=== PATIENT | female | born 1960 | race Caucasian/White ===

== ENCOUNTER → 2020-01-19 11:11 | Outpatient (CLI) | payer OTHER, SELFPAY ==
--- NOTE | ~2020-01-19 | XR_ITS ---
XR knee LT min 4V DATE: 01/19/2020 11:33 INDICATION: Pain and swelling of left knee after injuries 2 months ago TECHNIQUE: Cross table, AP and bilateral oblique views COMPARISON: None FINDINGS: No fracture, dislocation, joint effusion or periosteal reaction or bone destruction. Joint spaces are well preserved. No radiopaque intra-articular loose body or chondrocalcinosis. IMPRESSION: No significant abnormality Reviewed, dictated and finalized at location B. ELAIN ENAMEL INSTALLER IMPRESSION: No significant abnormality
== END ==
PROVIDERS: PCP Family Medicine; Visit Provider Family Medicine
DX: M25.562 Pain in left knee (principal)
CPT/HCPCS: 73564

== ENCOUNTER 2020-11-01 07:53 | Outpatient (CLI) | payer OTHER, SELFPAY ==
--- NOTE | ~2020-11-01 | US_ITS ---
EXAMINATION: US carotid duplex BI DATE: 11/01/2020 08:57 INDICATION: Vertigo. Right carotid bruit. TECHNIQUE: Grayscale, color Doppler, and pulsed Doppler images of the cervical carotid arteries were obtained. The degree of vessel stenosis is placed in one of the following categories: normal, <50%, 5 0-69%, >=70% but less than near-occlusion, near-occlusion, or total occlusion. Note that percent sten osis relative to normal distal artery lumen diameter is indirectly measured from velocity measurement s as described by Greg, et al. Radiology 2003; [id number]. Notes: Normal: Peak systolic velocity <125 centimeters/sec and no plaque <50%. Peak systolic velocity <125 ( EDV <40; ICA/CCA PSV ratio <2.0; used these factors only a tandem lesions or low cardiac output or co ntralateral disease) 50-69 %: PSV 125-230 (EDV 40-100; ratio 2-4) >= 70% but less than near occlusion: PSV greater than 230 (EDV > 100; ratio> 4.0) Near Occlusion: PSV that is variable; markedly narrowed lumen Occlusion: Absent flow on color/spectral Doppler and no lumen on armstrong scale. COMPARISON: None. FINDINGS: RIGHT: The right common carotid artery (CCA) peak systolic velocity (PSV) is 108 cm/s. The right internal ca rotid artery (ICA) PSV is 91 cm/s. The right ICA end-diastolic velocity (EDV) is 19 cm/s. The right I CA/CCA PSV ratio is .9. The external carotid artery (ECA) PSV is 136 cm/s. There is antegrade flow in the right vertebral artery. LEFT: The left CCA PSV is 110 cm/s. The left ICA PSV is 110 cm/s. The left ICA EDV is 20 cm/s. The left ICA /CCA PSV ratio is 1.0. The ECA PSV is 102 cm/s. There is antegrade flow in the left vertebral artery . IMPRESSION: 1. Less than 50% stenosis in the right internal carotid artery by sonographic criteria. 2. Less than 50% stenosis in the left internal carotid artery by sonographic criteria. Reviewed, dictated and finalized at location B. ATTENDANT IMPRESSION: 1. Less than 50% stenosis in the right internal carotid artery by sonographic radha morales. 2. Less than 50% stenosis in the left internal carotid artery by sonographic loco marquez.
== END 2020-11-01 07:54 | disposition home or self-care (01) ==
PROVIDERS: PCP Family Medicine; Visit Provider Family Medicine
DX: R09.89 Other specified symptoms and signs involving the circulatory and respiratory systems (principal); I65.23 Occlusion and stenosis of bilateral carotid arteries
CPT/HCPCS: 93880

== ENCOUNTER 2020-11-20 08:03 | Outpatient (CLI) | payer OTHER, SELFPAY ==
--- NOTE | ~2020-11-20 | MM_ITS ---
EXAMINATION: MM screening ceasar BI w sean HISTORY: Screening mammogram TECHNIQUE: Craniocaudal and mediolateral oblique 3-D tomosynthesis images were obtained and synthetic 2-D images were generated. CAD analysis was submitted and interpreted. COMPARISON: 11/09/2018, 10/19/2017, 12/08/2016 bilateral digital screening mammogram examinations BREAST PARENCHYMAL COMPOSITION: There are scattered areas of fibroglandular density. FINDINGS: Status post partial mastectomy on the left, with multiple surgical clips in the inner aspec t of the mid medial left breast. There is no evidence of suspicious mass, calcification, or interval architectural distortion to suggest malignancy in either breast. There has been no suspicious interva l change. IMPRESSION: 1. No mammographic evidence of malignancy. 2. Recommend routine screening mammography in one year. BI-RADS Category 2: Benign finding(s). Reviewed, dictated and finalized at location A. ATION SPECIALIST
== END 2020-11-20 08:04 | disposition home or self-care (01) ==
PROVIDERS: PCP Family Medicine; Visit Provider Family Medicine
DX: Z12.31 Encounter for screening mammogram for malignant neoplasm of breast (principal)
CPT/HCPCS: 77063; 77067

== ENCOUNTER 2021-02-15 14:20 | Outpatient (CLI) | payer OTHER, SELFPAY | END 2021-02-15 14:21 | disposition home or self-care (01) | PROVIDERS: PCP Family Medicine | DX: Z23 Encounter for immunization (principal) | CPT/HCPCS: 0001A; 91300 ==

== ENCOUNTER 2021-03-08 14:01 | Outpatient (CLI) | payer OTHER, SELFPAY | END 2021-03-08 14:02 | disposition home or self-care (01) | LOC: ANHCOVIDVC 14:01 | PROVIDERS: PCP Family Medicine | DX: Z23 Encounter for immunization (principal) | CPT/HCPCS: 0002A; 91300 ==

== ENCOUNTER 2021-06-12 15:12 | Emergency (ER) | payer OTHER, SELFPAY ==
--- NOTE | ~2021-06-12 | XR_ITS ---
EXAMINATION: XR chest 2V EXAM DATE: 06/12/2021 15:58 INDICATION: S.O.B. and wheezing for 4 days, smoker for 40 year. TECHNIQUE: Frontal and lateral projections of the chest obtained and reviewed. Comparison is made to prior examination from 12/31/2017. FINDINGS: Right apical granuloma unchanged. The lungs are otherwise clear. There are no pleural eff usions. The cardiomediastinal silhouette is within normal limits. There is no pneumothorax suspecte d. The bones and soft tissues are unremarkable. IMPRESSION: No acute cardiopulmonary findings. Reviewed, dictated and finalized at location A.
[2021-06-12 15:24] VITALS: BP 123/66; PULSE 76; RESP 20; TEMP 36.8; O2SAT 98
--- NOTE | 2021-06-12 15:50 | ED.GENADULT ---
HPI - General Adult General Chief complaint: Upper Respiratory Infection Stated complaint: Cough, Sinus, difficulty breathing Source: patient Mode of arrival: ambulatory Limitations: no limitations History of Present Illness HPI narrative: Patient is a 60-year-old female presents the [facility] via POV for evaluation of upper respiratory symptoms that have been present for approximately 4 days. Additionally, she reports bilateral ear pain, productive cough, chest congestion, and shortness of breath. She reports her sputum production to be thick and mostly clear but sometimes white and sometimes shades of green . Guaifenesin and antihistamines provide mild temporary relief. Deep inspiration worsens cough. Patient recently traveled to [place]. She admits that she is a tobacco smoker and smokes 1 PPD x40 years. Related Data Home Medications Medication Instructions Recorded Confirmed alprazolam 0.25 mg tablet 0.25 mg PO TID 08/21/20 06/12/21 apixaban 5 mg tablet 5 mg PO BID 08/21/20 06/12/21 fluoxetine 10 mg capsule 10 mg PO DAILY 08/21/20 06/12/21 lisinopril 10 mg tablet 10 mg PO DAILY 08/21/20 06/12/21 metoprolol tartrate 25 mg tablet 25 mg PO BID tablet 08/21/20 06/12/21 omeprazole 20 mg capsule,delayed 20 mg PO DAILY 08/21/20 06/12/21 release Allergies Allergy/AdvReac Type Severity Reaction Status Date / Time simvastatin Allergy Intermediate Dizziness Verified 06/12/21 15:23 Review of Systems Review of Systems: Narrative: History of bronchitis. Denies history of COPD, asthma, and pneumonia. Denies fever, sweats, chills, change in appetite, fatigue, skin color changes, headache, nasal congestion/discharge, dizziness, lymphadenopathy, sinus problems, ear drainage, chest pain, heart murmurs, heart palpitations, shortness of breath, wheezing, cyanosis, hemoptysis, hoarseness, orthopnea, pleuritic pain, nausea, vomiting, diarrhea, and myalgias. [facility] Past Medical History Medical History Breast cancer Bronchitis Depression Family planning (~02/1998) GERD (gastroesophageal reflux disease) (~12/2009) Hypertension Paroxysmal atrial fibrillation Social History Social History Gender identity (if verbalized by the patient): Female Comments I have reviewed and agree with the patient's past medical, surgical, social, and family hx as documented by the RN. There is no relevant family history pertinent to the presenting complaint. Exam Narrative: Exam Narrative: GENERAL: Well-appearing, well-nourished, and in no acute distress. HEAD: Normocephalic, atraumatic. No sinus tenderness or facial swelling appreciated. EYES: PERRLA and EOMI. No evidence of erythema, swelling, or drainage. ENT: Bilateral external ears and ear canals normal. Bilateral TMs are normal.No TM perforation. Nares clear, no rhinorrhea or epistaxis. Bilateral turbinates without erythema/ swelling. Mucous membranes moist and pink. Uvula is midline without erythema and swelling. No evidence of petechial rash, cobblestoning, lesions, ulcers, erythema, swelling, exudates, peritonsillar abscess, tenting, or drooling. Breath odor and voice normal. NECK: Supple. No Lymphadenopathy or nuchal rigidity appreciated. CHEST: Mild inspiratory wheezes noted throughout posterior bilateral lung quispe. Moderate wet cough appreciated on examination. No respiratory distress. No evidence of rales, rhonchi, rub, or pleuritic cp upon examination. HEART: Regular rate and rhythm. No murmur, gallop, or rub heard. EXTREMITIES: Normal range of motion. No edema. SKIN: Warm, dry, no rash. NEURO: No focal deficits. Alert and oriented x3. Course Vital Signs Vital signs: Vital Signs Temperature 98.2 F 06/12/21 15:24 Pulse Rate 76 06/12/21 15:24 Respiratory Rate 20 06/12/21 15:24 Blood Pressure 123/66 06/12/21 15:24 Pulse Oximetry 9
== END 2021-06-12 16:26 | disposition home or self-care (01) ==
PROVIDERS: Emergency Provider Nurse Practitioner Family; PCP Family Medicine
DX: J40 Bronchitis, not specified as acute or chronic (principal); Z20.822 Contact with and (suspected) exposure to COVID-19; Z85.3 Personal history of malignant neoplasm of breast; F32.9 Major depressive disorder, single episode, unspecified; K21.9 Gastro-esophageal reflux disease without esophagitis; I48.0 Paroxysmal atrial fibrillation
CPT/HCPCS: 71046; 87426; 99213; C9803; G0463

== ENCOUNTER → 2021-07-19 03:57 | Outpatient (CLI) | payer OTHER, SELFPAY ==
[2021-07-19 20:12] LABS: SARS-CoV-2 RNA PCR Negative
== END ==
PROVIDERS: PCP Family Medicine; Visit Provider Family Medicine
DX: J06.9 Acute upper respiratory infection, unspecified (principal); Z20.822 Contact with and (suspected) exposure to COVID-19
CPT/HCPCS: C9803; U0003; U0005

== ENCOUNTER 2021-11-04 01:24 | Day surgery (SDC) | payer OTHER, SELFPAY ==
[2021-10-16 14:29] VITALS: BMI 27.2
[2021-11-04 11:00] VITALS: BP 132/72; PULSE 63; RESP 16; TEMP 36.3; O2SAT 99
--- NOTE | 2021-11-04 11:03 | PM.HPGS ---
History of Present Illness History of Present Illness Consent: Risks, benefits, and alternatives have been discussed and questions answered. Patient agrees to proceed with procedure. Chief complaint: family hx of colon ca Narrative: Becky Fischer is a 61 year old female who is here for colon cancer screening. She has a family history of colon cancer, her mother and maternal uncle Review of Systems Review of Systems: All systems reviewed & are unremarkable except as noted in HPI and below PMFSH Past Medical History Medical History Breast cancer Bronchitis Depression Family planning (~02/1998) GERD (gastroesophageal reflux disease) (~12/2009) Hypertension Paroxysmal atrial fibrillation Social History Social History Smoking packs per day: 1 Smoking cigarettes per day: 20.0 Years smoked: 40 Smoking pack-years: 40.00 Smoking status: Current every day smoker Tobacco type: cigarettes Alcohol intake: current Drinks per week: 50 Alcohol use details: beer 7/day Substance use: never Substance use type: does not use Living arrangements: alone Gender identity (if verbalized by the patient): Female Spiritual care concerns: No Meds Home Medications and Allergies Home Medications Medication Instructions Recorded Confirmed Type alprazolam 0.25 mg tablet 0.25 mg PO TID 08/21/20 11/04/21 History apixaban 5 mg tablet 5 mg PO BID 08/21/20 11/04/21 History fluoxetine 10 mg capsule 20 mg PO DAILY 08/21/20 11/04/21 History lisinopril 10 mg tablet 10 mg PO DAILY 08/21/20 11/04/21 History metoprolol tartrate 25 mg tablet 25 mg PO BID tablet 08/21/20 11/04/21 History omeprazole 20 mg capsule,delayed 20 mg PO DAILY 08/21/20 11/04/21 History release levalbuterol tartrate 2 inh INHALATION Q4-6H PRN #15 g 06/12/21 11/04/21 Rx Allergies Allergy/AdvReac Type Severity Reaction Status Date / Time simvastatin Allergy Intermediate Dizziness Verified 11/04/21 10:59 Vital Signs Vital Signs - 24 hr 11/04/21 11:00 Temperature 36.3 C L Pulse Rate 63 Respiratory Rate 16 Blood Pressure 132/72 Pulse Oximetry 99 Assessment and Plan Assessment and plan (1) Colon cancer screening: Code(s): Z12.11 - Encounter for screening for malignant neoplasm of colon Status: Acute Assessment and Plan: Colonoscopy with possible biopsy or polypectomy or cautery or injection of substances.
[2021-11-04] MEDS: LACTATED RINGERS 1,000 ML 150 ML IV CONT (11:04)
--- NOTE | 2021-11-04 11:43 | P.PNAN_ITS ---
Anes - Initial Pre Proc Eval Procedure: Operation Date: 11/04/21 12:30 Proposed Procedures p Screening Colonoscopy - Shun Crowley MD Date/Time: 11/04/21 11:43 Surgeon: Shun Crowley MD Pre Op Diagnosis: family hx of colon ca Patient Data Age: 61 Gender: F Height: 1.63 m Weight: 71.9 kg Last Vital Signs Temp 97.3 F L 11/04/21 11:00 Pulse 63 11/04/21 11:00 Resp 16 11/04/21 11:00 BP 132/72 11/04/21 11:00 Pulse Ox 99 11/04/21 11:00 Allergies Allergy/AdvReac Type Severity Reaction Status Date / Time simvastatin Allergy Intermediate Dizziness Verified 11/04/21 10:59 Home Medications Medication Instructions Recorded Confirmed Type alprazolam 0.25 mg tablet 0.25 mg PO TID 08/21/20 11/04/21 History apixaban 5 mg tablet 5 mg PO BID 08/21/20 11/04/21 History fluoxetine 10 mg capsule 20 mg PO DAILY 08/21/20 11/04/21 History lisinopril 10 mg tablet 10 mg PO DAILY 08/21/20 11/04/21 History metoprolol tartrate 25 mg tablet 25 mg PO BID tablet 08/21/20 11/04/21 History omeprazole 20 mg capsule,delayed 20 mg PO DAILY 08/21/20 11/04/21 History release levalbuterol tartrate 2 inh INHALATION Q4-6H PRN #15 g 06/12/21 11/04/21 Rx Patient hx anesthesia problems: none Family hx anesthesia problems: none Results Review: All pre-operative results and documents have been reviewed as part of the pre-operative evaluation. [facility] Past Medical History Medical History Breast cancer Bronchitis Depression Family planning (~02/1998) GERD (gastroesophageal reflux disease) (~12/2009) Hypertension Paroxysmal atrial fibrillation Social History Social History Smoking packs per day: 1 Smoking cigarettes per day: 20.0 Years smoked: 40 Smoking pack-years: 40.00 Smoking status: Current every day smoker Tobacco type: cigarettes Alcohol intake: current Drinks per week: 50 Alcohol use details: beer 7/day Substance use: never Substance use type: does not use Living arrangements: alone Gender identity (if verbalized by the patient): Female Spiritual care concerns: No Anes - Eval Final PreProcedure Day of Procedure 11/04/21 11:43 Patient weight: normal Heart: regular rate and rhythm Lungs: clear to auscultation Airway: Mallampati scale class II Neurological: alert and oriented Last oral intake: >/= 8 hours ASA classification: III Emergent: no Anesthetic plan: proceed Anesthesia type and monitoring: general GIVS and standard monitoring Results Review: All pre-operative results and documents have been reviewed as part of the pre-operative evaluation. Informed Consent: The patient's anesthetic plan and its attendant risks and benefits were discussed with the patient/family/POA. Questions were solicited and answers provided to the satisfaction of the patient/family/POA.
[2021-11-04 12:07] VITALS: BP 121/91; PULSE 58; RESP 21; O2SAT 98
[2021-11-04 12:17] VITALS: BP 94/49; PULSE 59; RESP 18; O2SAT 100
[2021-11-04 12:27] VITALS: BP 107/57; PULSE 49; RESP 19; O2SAT 100
[2021-11-04 12:37] VITALS: BP 108/62; PULSE 51; RESP 19; O2SAT 100
== END 2021-11-04 12:36 | disposition home or self-care (01) ==
PROVIDERS: PCP Family Medicine; Visit Provider Internal Medicine Gastroenterology
PROC: 0DJD8ZZ Inspection of Lower Intestinal Tract, Via Natural or Artificial Opening Endoscopic (ICD-10-PCS; CPT 45378; principal; 2021-11-04 12:30)
DX: Z12.11 Encounter for screening for malignant neoplasm of colon (principal); K57.30 Diverticulosis of large intestine without perforation or abscess without bleeding; K64.8 Other hemorrhoids; Z80.0 Family history of malignant neoplasm of digestive organs; I10 Essential (primary) hypertension; I48.0 Paroxysmal atrial fibrillation; K21.9 Gastro-esophageal reflux disease without esophagitis; F32.9 Major depressive disorder, single episode, unspecified; Z85.3 Personal history of malignant neoplasm of breast; Z79.51 Long term (current) use of inhaled steroids; Z79.01 Long term (current) use of anticoagulants; F17.210 Nicotine dependence, cigarettes, uncomplicated
CPT/HCPCS: 45378; J2704; J7120

== ENCOUNTER 2023-12-06 22:48 | Emergency (ER) | payer OTHER, SELFPAY ==
--- NOTE | ~2023-12-06 | CT_ITS ---
Clinical Indication: Chest pain CT Scan of the Chest with Contrast: Technique: Contiguous sections were acquired throughout the chest after intravenous administration of 100 cc of Omnipaque 350. Dose reduction technique was used on this scan by utilizing automated expos ure control and iterative reconstruction technique. The dose-length product (DLP) was 414.78 mGy-cm. Findings: There is no evidence of any significant mediastinal, hilar or axillary lymphadenopathy. Small calcifi ed mediastinal and right hilar lymph nodes are present. There is no filling defect in the pulmonary a rterial tree to suggest pulmonary embolus. There is no evidence of aortic dissection or aneurysm. There is no evidence of pleural or pericardial effusion. Probable minimal scarring in the right upper lobe. Images through the upper abdomen reveal calcified splenic granulomas. Impression: No evidence of pulmonary embolus, aortic dissection, or aortic aneurysm. No definite acute pulmonary abnormality. Evidence of prior granulomatous disease. Reviewed, dictated and finalized at [facility]. BILITY BENEFITS SPECIALIST Impression: No evidence of pulmonary embolus, aortic dissection, or aortic aneurysm. No definite acute pulmonary abnormality. Evidence of prior granulomatous disease.
--- NOTE | ~2023-12-06 | XR_ITS ---
Clinical Indication: Chest pain PA and lateral views of the chest: Comparison: 06/12/2021 Findings: The lungs are clear, without evidence of focal consolidation or pleural effusion. Cardiome diastinal silhouette is within normal limits. Stable calcified right paratracheal lymph node. Bones a nd soft tissues are unremarkable. Impression: Clear lungs. Reviewed, dictated and finalized at location . EFIED PETROLEUM GASFITTER Impression: Clear lungs.
--- NOTE | 2023-12-06 22:49 | ECG_ITS ---
Measurements Intervals [place] Rate: 65 P: 48 MS: 156 QRS: 51 QRSD: 90 T: 61 QT: 406 QTc: 423 Interpretive Statements SINUS RHYTHM T WAVE ABNORMALITY IN ANTERIOR LEADS- CONSIDER ISCHEMIA BASELINE WANDER- II, III ABNORMAL ECG NO PREVIOUS ECG AVAILABLE FOR COMPARISON Electronically Signed On 12-07-2023 13:13:31 PLC TECHNICIAN by Miguel A Mcconnell D.O.
[2023-12-06 22:55] VITALS: BP 107/71; PULSE 66; RESP 18; TEMP 36.5; O2SAT 96
[2023-12-06 23:12] LABS: Basophils Percent Auto 0.3 % (0.2-1.2); Eosinophils Absolute Auto 0.3 K/mm3 (0-0.3); Eosinophils Percent Auto 4.9 % (0-4.4); Hematocrit 37.5 % (37.0-47.0); Hemoglobin 12.2 g/dL (12.0-15.0); Immature Granulocyte Absolute 0.01 K/mm3 (0.00-0.031); Immature Granulocyte Percent A 0.2 % (0-0.5); Lymphocytes Absolute Auto 2.09 K/mm3 (0.9-3.2); Lymphocytes Percent Auto 34.1 % (18.3-44.2); Mean Corpuscular HGB Conc 32.5 g/dl (32-36); Mean Corpuscular Hemoglobin 31.8 pg (26-34); Mean Corpuscular Volume 97.7 fl (80-100); Mean Platelet Volume 9.8 fl (7.4-10.4); Monocytes Absolute Auto 0.4 K/mm3 (0.1-0.6); Monocytes Percent Auto 7.2 % (2.6-8.5); Neutrophils Absolute Auto 3.3 K/mm3 (1.3-6.7); Neutrophils Percent Auto 53.3 % (45.5-73.1); Platelet Count Result 223 k/mm3 (150-375); Red Blood Count 3.84 M/mm3 (4.2-5.4); Red Cell Distribution Width 12.1 % (11.5-14.5); White Blood Count 6.1 K/mm3 (4.5-10.0)
[2023-12-06 23:26] LABS: Alanine Aminotransferase 24 U/L (6-35); Albumin Level 4.3 g/dL (3.5-5.1); Alkaline Phosphatase 94 U/L (38-126); Anion Gap 12 mmol/L (8-16); Aspartate Amino Transferase 34 U/L (14-36); Bilirubin,Total 0.3 mg/dL (0.2-1.3); Blood Urea Nitrogen 11 mg/dL (7-17); Calcium 9.4 mg/dL (8.4-10.2); Carbon Dioxide 24 mmol/L (22-30); Chloride 99 mmol/L (98-107); Estimated CRCL calculation 75 ml/min; Estimated Glomerular Filt Rate > 60; Glucose 102 mg/dL (65-110); Lipase 77 U/L (23-300); Potassium 3.9 mmol/L (3.4-5.0); Sodium 135 mmol/L (137-145)
[2023-12-06 23:38] LABS: Troponin I < 0.012 ng/mL (0.000-0.034)
[2023-12-06 23:56] LABS: Prothrombin Time 13.2 Seconds (11.1-14.7)
[2023-12-07 01:54] VITALS: BP 103/61; PULSE 58; RESP 24; O2SAT 97
--- NOTE | 2023-12-07 02:58 | ECG_ITS ---
Measurements Intervals [place] Rate: 51 P: 12 UT: 165 QRS: 46 QRSD: 87 T: 51 QT: 466 QTc: 433 Interpretive Statements SINUS BRADYCARDIA BORDERLINE T WAVE ABNORMALITY- ANTERIOR LEADS BORDERLINE ECG NO PREVIOUS ECG AVAILABLE FOR COMPARISON Electronically Signed On 12-07-2023 7:03:17 BACK TENDER INSULATION BOARD by Miguel A Mcconnell D.O.
[2023-12-07 03:08] VITALS: BP 106/62; PULSE 55; RESP 21; O2SAT 99
[2023-12-07 04:01] LABS: Troponin I < 0.012 ng/mL (0.000-0.034)
[2023-12-07 05:04] VITALS: BP 114/81; PULSE 52; RESP 20; O2SAT 96
[2023-12-07 05:53] VITALS: BP 114/72; PULSE 56; RESP 18; O2SAT 95
--- NOTE | 2023-12-07 06:36 | ED.GENADULT ---
HPI - General Adult General Chief complaint: Chest Pain Stated complaint: chest pain Time Seen by Provider: 12/07/23 04:49 History of Present Illness HPI narrative: Patient is 63-year-old female who presents emergency department with chief complaint of chest pain since Thursday. Patient reports she has a sharp type pain on the left side of her chest reports worse with inspiration worse with movement. Patient reports he attempted to drink some alcohol in place a heating pad on it that did not relieve her pain. Related Data Home Medications Medication Instructions Recorded Confirmed alprazolam 0.25 mg tablet 0.25 mg PO DAILY PRN anxiety 06/22/23 08/27/23 Allergies Allergy/AdvReac Type Severity Reaction Status Date / Time simvastatin Allergy Intermediate Dizziness Verified 12/07/23 01:54 Review of Systems Review of Systems: A 10 system review of systems was completed on the patient and is negative except for what is stated in the HPI. Nursing and ancillary documentation was reviewed. PMFSH Past Medical History Medical History Blood in stool Breast cancer Bronchitis Depression Diverticulitis Family history of colon cancer Family planning (~02/1998) Functional dyspepsia Generalized anxiety disorder GERD (gastroesophageal reflux disease) (~12/2009) Hyperlipidemia, unspecified Hypertension Nicotine dependence, cigarettes, uncomplicated Paroxysmal atrial fibrillation Pure hypercholesterolemia, unspecified Right carotid bruit Social History Social History Smoking packs per day: 1 Smoking cigarettes per day: 20.0 Years smoked: 40 Smoking pack-years: 40.00 Smoking status: Current every day smoker Tobacco type: cigarettes Alcohol intake: current Drinks per week: 50 Alcohol use details: beer 7/day Substance use: never Substance use type: does not use Lack of Transportation: No Lack of Food: Never True Current Housing: I Have Housing Concerned About Future Housing: Decline to Answer Difficulty Paying Gas/Electric Bills: YES Difficulty Paying for Meds: Decline to Answer Currently Unemployed: No Education: High School Diploma/GED Difficulty w/ Childcare or Family Care: No Living arrangements: alone Occupation/Education: occupation Gender identity (if verbalized by the patient): Female Sexual Orientation (if Verbalized by the Patient): Straight or Heterosexual Spiritual care concerns: No Exam Narrative: GENERAL: Well-appearing, well-nourished, and in no acute distress. HEAD: Normocephalic, atraumatic. EYES: PERRLA and EOMI. ENT: Nares clear, no rhinorrhea or epistaxis. Mucous membranes moist. NECK: Supple. CHEST: Clear to auscultation. No respiratory distress. Chest wall is tender to palpation reproducible pain HEART: Regular rate and rhythm. No murmur heard. Normal peripheral pulses. ABDOMEN: Soft, nontender, nondistended, normal active bowel sounds. EXTREMITIES: Normal range of motion. No edema. SKIN: Warm, dry, no rash. NEURO: No focal deficits. Alert and oriented x3. PSYCH: Normal mood and affect. Course Vital Signs Vital signs: Vital Signs Temperature 36.5 C 12/06/23 22:55 Pulse Rate 66 12/06/23 22:55 Respiratory Rate 18 12/06/23 22:55 Blood Pressure 107/71 12/06/23 22:55 Pulse Oximetry 96 12/06/23 22:55 Oxygen Delivery Room Air 12/06/23 22:55 Temperature 36.5 C 12/06/23 22:55 Pulse Rate 56 L 12/07/23 05:53 Respiratory Rate 18 12/07/23 05:53 Blood Pressure 114/72 12/07/23 05:53 Pulse Oximetry 95 12/07/23 05:53 Oxygen Delivery Room Air 12/06/23 22:55 Medical Decision Making [facility] Narrative Medical decision making narrative: Differential diagnosis includes chest wall pain, ACS, pulmonary embolism, pneumothorax, EKG showed no acute ischemic changes electrolyt
[2023-12-07 06:39] VITALS: BP 113/71; PULSE 60; RESP 21; O2SAT 98
[2023-12-07 06:48] VITALS: BP 113/69; PULSE 69; RESP 14; O2SAT 96
== END 2023-12-07 06:51 | disposition home or self-care (01) ==
PROVIDERS: Emergency Provider Emergency Medicine; PCP Family Medicine
DX: R07.89 Other chest pain (principal); I10 Essential (primary) hypertension; I48.0 Paroxysmal atrial fibrillation; E78.00 Pure hypercholesterolemia, unspecified; F32.A Depression, unspecified; F41.1 Generalized anxiety disorder; Z85.3 Personal history of malignant neoplasm of breast; K21.9 Gastro-esophageal reflux disease without esophagitis; F17.210 Nicotine dependence, cigarettes, uncomplicated; Z79.01 Long term (current) use of anticoagulants
CPT/HCPCS: 36415; 71046; 71275; 80053; 83690; 84484; 85025; 85610; 85730; 93005; 99284; Q9967

== ENCOUNTER 2024-02-09 14:46 | Outpatient (CLI) | payer OTHER, SELFPAY ==
--- NOTE | ~2024-02-09 | MM_ITS ---
EXAMINATION: MM screening ceasar BI w sean HISTORY: Screening mammogram TECHNIQUE: Craniocaudal and mediolateral oblique 3-D tomosynthesis images were obtained and synthetic 2-D images were generated. CAD analysis was submitted and interpreted. COMPARISON: 11/20/2020, 11/09/2018 bilateral screening mammogram examinations BREAST PARENCHYMAL COMPOSITION: There are scattered areas of fibroglandular density. FINDINGS: Status post left partial mastectomy. There is no evidence of suspicious mass, calcification , or architectural distortion to suggest malignancy in either breast. There has been no suspicious in terval change. IMPRESSION: 1. Status post left partial mastectomy for breast cancer. No mammographic evidence of malignancy. 2. Recommend routine screening mammography in one year. BI-RADS Category 2: Benign finding(s). Reviewed, dictated and finalized at location A. IMPRESSION: 1. Status post left partial mastectomy for breast cancer. No mammographic evide nce of malignancy. 2. Recommend routine screening mammography in one year. BI-RADS Category 2: Benign finding(s).
== END 2024-02-09 14:47 | disposition home or self-care (01) ==
PROVIDERS: PCP Family Medicine; Visit Provider Family Medicine
DX: Z12.31 Encounter for screening mammogram for malignant neoplasm of breast (principal)
CPT/HCPCS: 77063; 77067

== ENCOUNTER 2024-02-12 13:39 | Outpatient (CLI) | payer OTHER, SELFPAY ==
--- NOTE | ~2024-02-12 | CT_ITS ---
CT Scan of the Chest without Contrast: Clinical Indication: Lung cancer screening, smoking history Technique: Contiguous sections were acquired throughout the chest without intravenous contrast. Dose reduction technique was used on this scan by utilizing automated exposure control and iterative recon struction technique. The dose-length product (DLP) was 138.65 mGy-cm. COMPARISON: 12/07/2023 Findings: There is no evidence of any significant mediastinal, hilar or axillary lymphadenopathy. Calcified med iastinal and right hilar lymph nodes are present. Coronary artery calcifications are present. There is no evidence of pleural or pericardial effusion. The lungs are clear, aside from calcified right lower lobe granuloma. Images through the upper abdomen reveal calcified splenic granulomas. Impression: Lung RADS 2: Benign appearance. 12 month follow-up screening CT advised. Reviewed, dictated and finalized at [facility]. Impression: Lung RADS 2: Benign appearance. 12 month follow-up screening CT advised.
== END 2024-02-12 13:40 ==
LOC: MICIMG 13:40
PROVIDERS: PCP Family Medicine; Visit Provider Family Medicine
DX: Z12.2 Encounter for screening for malignant neoplasm of respiratory organs (principal); F17.210 Nicotine dependence, cigarettes, uncomplicated
CPT/HCPCS: 71271

== ENCOUNTER 2025-01-23 09:56 | Emergency (ER) | payer SELFPAY ==
--- NOTE | ~2025-01-23 | XR_ITS ---
EXAMINATION: XR chest 2V DATE: 01/23/2025 10:21 INDICATION: Cough. TECHNIQUE: Frontal and lateral views of the chest were obtained. COMPARISON: Chest 2 views 12/06/2023 FINDINGS: Calcified right lung nodules and calcified right hilar and mediastinal lymph nodes are cons istent with old granulomatous disease. No pleural effusion or pneumothorax. The heart size is normal. There are old healed left rib fractures. IMPRESSION: 1. No acute cardiopulmonary disease. Reviewed, dictated and finalized at location A. ICAL DIETETIC TECHNICIAN
[2025-01-23 10:05] VITALS: BP 128/60; PULSE 65; RESP 18; TEMP 36.4; O2SAT 100
--- NOTE | 2025-01-23 10:10 | ED_ITS ---
HPI - URI/Sore Throat General Chief Complaint: Upper Respiratory Infection Stated Complaint: Upper Respiratory Infection Time Seen by Provider: 01/23/25 10:11 Source: patient, RN notes reviewed and old records reviewed Mode of arrival: ambulatory Limitations: no limitations History of Present Illness HPI Narrative: 64-year-old female presents to the [facility] with complaints of a cough since October, 2 months. Has contacted primary care provider and reports that she has been on 2 rounds of antibiotics as well as Tessalon Perles. States that neither has helped her symptoms. Requesting a chest x-ray. Patient is a smoker Onset (ago): month(s) (2) Treatments prior to arrival: cold medicine and antibiotics Related Data Home Medications ?Medication ?Instructions ?Recorded ?Confirmed ?Last Taken ?Type magnesium oxide 400 mg PO DAILY 01/28/24 01/28/24 Unknown History Allergies Allergy/AdvReac Type Severity Reaction Status Date / Time simvastatin Allergy Intermediate Dizziness Verified 01/23/25 10:10 Review of Systems Review of Systems: All systems reviewed & are unremarkable except as noted in HPI and below Constitutional: Constitutional: Reports no additional constitutional complaints ENT: Reports system reviewed and no additional complaints, except as documented Cardiovascular: Cardiovascular: Reports no additional cardiovascular complaints, Denies chest pain and Denies dyspnea Respiratory: Respiratory: Reports as per HPI, Reports chest congestion, Reports cough and Denies dyspnea Musculoskeletal: Musculoskeletal: Reports no additional musculoskeletal complaints Integumentary/Breasts: Skin/Breast: Reports system reviewed and no additional complaints, except as docu PMFSH Past Medical History Medical History Obstructive sleep apnea Generalized anxiety disorder Blood in stool Right carotid bruit Hyperlipidemia, unspecified Nicotine dependence, cigarettes, uncomplicated Pure hypercholesterolemia, unspecified Functional dyspepsia Diverticulitis Family history of colon cancer Bronchitis Hypertension Breast cancer Paroxysmal atrial fibrillation GERD (gastroesophageal reflux disease) (~12/2009) Depression Family planning (~02/1998) Social History Social History Smoking packs per day: 1 Smoking cigarettes per day: 20.0 Years smoked: 40 Smoking pack-years: 40.00 Smoking status: Current every day smoker Tobacco type: cigarettes Alcohol intake: current Drinks per week: 50 Alcohol use details: beer 7/day Substance use: never Substance use type: does not use Lack of Transportation: No Lack of Food: Never True Current Housing: I Have Housing Concerned About Future Housing: Decline to Answer Difficulty Paying Gas/Electric Bills: YES Difficulty Paying for Meds: Decline to Answer Currently Unemployed: No Education: High School Diploma/GED Difficulty w/ Childcare or Family Care: No Living arrangements: alone Occupation/Education: occupation Gender identity (if verbalized by the patient): Female Sexual Orientation (if Verbalized by the Patient): Straight or Heterosexual Spiritual care concerns: No Comments At the time of my signature, I reviewed and agree with the nursing past medical, surgical, social, and family history. There is no relevant family history pertinent to the patient complaint. Exam Const: General: cooperative, healthy appearing, comfortable, no acute distress, well developed, alert and well nourished Nutritional Appearance: well nourished Orientation/consciousness: patient oriented x3 Limitations: no limitations HENMT: Head: normal to inspection Ears: hearing grossly normal bilaterally, external ears normal, TM's normal bilaterally, EAC's normal, mastoids normal and no periauricular adenopathy Mouth: Yes Normal oral and palatal mucosa present, Yes lip normal, Yes tongue normal and Yes moist mucous membranes Throat: posterior oropharynx normal, uvula midline and no uvular edema Eyes: General: appearance normal, both eyes and all related structures Alignment and Position: alignment normal Neck: Neck: normal visual inspection, full ROM, no lymphadenopathy and no meningeal signs Chest: Chest palpation & inspection: normal inspection of the chest Resp: Effort & Inspection: normal respiratory effort and able to speak in complete sentences Auscultation: no crackles, no rales, no rhonchi and wheezes expiratory wheezes (Left lower.) Cardio: Rate: regular rate Skin: General skin exam: normal color and no rashes or lesions noted Neuro: General: patient oriented x3, gait normal, moves all extremities and no meningeal signs Cognition (Neuro): normal cognition Speech: normal speech Gait exam (Neuro): Normal gait present Extrem: General: normal to inspection, full ROM, capillary refill normal and normal gait Psych: Appearance: grossly normal and well kempt Mental Status: mental status grossly normal Speech and movement: Normal speech and movement present and Clear speech present Affect: normal affect Attitude: cooperative Course Course Level of Care: Express Care Visit Vital Signs Vital signs: Vital Signs Temperature 97.5 F L 01/23/25 10:05 Pulse Rate 65 01/23/25 10:05 Respiratory Rate 18 01/23/25 10:05 Blood Pressure 128/60 01/23/25 10:05 Pulse Oximetry 100 01/23/25 10:05 Oxygen Delivery Room Air 01/23/25 10:05 Temperature 97.5 F L 01/23/25 10:05 Pulse Rate 65 01/23/25 10:05 Respiratory Rate 18 01/23/25 10:05 Blood Pressure 128/60 01/23/25 10:05 Pulse Oximetry 100 01/23/25 10:05 Oxygen Delivery Room Air 01/23/25 10:05 Reviewed MDM - URI/Sore Throat MDM Narrative Medical decision making narrative: Patient sitting comfortably in exam room. Nontoxic, vitals stable. Patient in no acute distress. Patient presents with 2 month history of an intermittent productive cough. Patient has had 2 rounds of antibiotics and reports that no relief with either round. X-ray showed no acute findings Patient most likely with bronchitis, discussed with patient's underlying anxiety the albuterol and the prednisone can make symptoms a little bit worse. Use with caution. Discussed some of these post viral bronchitis can last for several weeks if not this a couple of months. Discussed [id number] treatments. Patient is appropriate for outpatient treatment with close follow-up Discharge instructions reviewed with patient, as well as provided in writing per nursing staff. The instructions also include specific and strict return/GO TO THE ER as well as f/u information. All questions have been answered, and the patient deny any further questions with discharge and discharge plan. Some parts of this dictation were generated by voice recognition software and may contain typographical and/or grammatical inaccuracies. Differential Diagnosis Differential diagnosis: Likely upper respiratory infection, otitis media, sinusitis, viral infection and bronchitis Imaging Data Radiologist's impression: EXAMINATION: XR chest 2V DATE: 01/23/2025 10:21 INDICATION: Cough. TECHNIQUE: Frontal and lateral views of the chest were obtained. COMPARISON: Chest 2 views 12/06/2023 FINDINGS: Calcified right lung nodules and calcified right hilar and mediastinal lymph nodes are consistent with old granulomatous disease. No pleural effusion or pneumothorax. The heart size is normal. There are old healed left rib fractur es. IMPRESSION: 1. No acute cardiopulmonary disease. Critical Care Time Critical Care Time Critical Care Time: No Discharge Plan Discharge Clinical Impression: Bronchitis Patient Disposition: Home, Self-Care Condition: Stable Instructions: Antibiotic Form, Acute Bronchitis (ED) Additional Instructions: Your symptoms are likely due to a viral illness, which is not treated with antibiotics. Typically viral infections last 7-10 days, the cough can linger for several weeks. It is very important to treat your symptoms. Drink plenty of water, Gatorade, Pedialyte, ice pops or Jell-O. -Alternate Tylenol and Motrin per package directions for fever or pain. You can alternate every 4 hours -Antihistamine medication such as Zyrtec/Claritin/Cortney during the day can help improve symptoms. -doing daily nasal irrigations can help relieve pressure your sinuses. Things like a Neti pot -Use Flonase twice a day for 5 days then daily to help reduce the inflammation and dry up your sinuses. -You can also use Mucinex. Be sure to drink plenty of water with this medication at least 8 ounces with every dose and it is important to drink 8 to 10 glasses of water per day. Water is a natural decongestant -Eat and drink things that are easy to swallow, like tea or soup, or popsicles. -Oral rinses such as: Salt water gargles and/or may use topical anesthetic (eg. Chloraseptic spray) or lozenges to relieve dryness or throat pain). -Frequent hand washing or hand chief operator hydroformer is one of the best ways to prevent spread of infection. -Using a vaporizer or humidifier at night will also help thin secretions and help with coughing up phlegm. -Follow up with primary care provider in 7-10 days if condition is not improving - For new or worsening symptoms go directly to the nearest ER Patient Language: Greenlandic Prescriptions: New albuterol sulfate 90 mcg/actuation HFA aerosol inhaler 2 puff inhalation QID PRN (Reason: shortness of breath or wheezing) Qty: 6.7 0RF (DME) Aerochamber MV Spacer See Rx Instructions .Route Qty: 1 0RF Rx Instructions: As directed prednisone 20 mg tablet See Rx Instructions .Route .COMPLEX Qty: 9 0RF Rx Instructions: Take 40 mg daily for 3 days, 20 mg daily for 3 days No Action magnesium oxide 400 mg magnesium capsule 400 mg PO DAILY metoprolol tartrate 25 mg tablet 25 mg PO BID 30 Days Qty: 180 1RF Eliquis 5 mg tablet 5 mg PO BID Qty: 180 1RF fluoxetine 40 mg capsule 40 mg PO DAILY Qty: 90 1RF alprazolam 0.25 mg tablet 0.25 mg PO DAILY PRN (Reason: anxiety) Qty: 30 0RF lisinopril 10 mg tablet 10 mg PO DAILY Qty: 90 1RF Follow-up/Referrals: Shaji Romero MD [Primary Care Provider] - Stand Alone Forms: Work/School Release IP Time of Disposition: 10:42
--- OUTSIDE RECORDS SUMMARY | 2025-01-23 11:02 | XMS_ITS | Encounter Summary ---
Author Organization [facility] Address [address] [place] [id number] Care Team Providers Care Accounts Payables Clerk Name Role Phone Shaji Romero MD Primary Care Provider [phone] Shaji Romero MD Primary Care Provider [phone] Encounter Details Date Type Department Care Team (Late st Contact Info) Description 01/23/2017 Orders Only [facility] ProviderTommy MD [address] [place] [id number] Social History Tobacco Use Types Packs/Day Years Used Date Smoking Tobacco: Smoker, Current Status Unknown Alcohol Use Standard Drinks/Week Comments Yes 0 (1 standard drink = 0.6 oz pur e alcohol) Comments Unknown Sex and Gender Information Value Date Recorded Sex Assigned at Not on file 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 Historical Provider [facility] MIKEY KIRBY Final Result documented in this encounter Visit Diagnoses Not on filedocumented in this encounter Care Teams Accounts Payables Clerk Relationship Specialty Start Date End Date Shaji Romero MD [address] [place] [id number] PCP - General 02/27/17 Shaji Romero MD [address] [place] [address] KATHLEEN MADDOX [id number] PCP - General 04/10/15 02/26/17 documented as of this encounter
--- OUTSIDE RECORDS SUMMARY | 2025-01-23 11:02 | XMS_ITS | Patient Health Summary ---
Author Organization [facility] Address [address] [place] [address] Care Team Providers Care Stucco Laborer Name Role Phone Shaji Romero MD Primary Care Provider [phone] [facility],non-owned Affiliates and Associated Physician Practices is amultiple site organization consisting of ambulatory clinics and hospital sitesin [place], [place]. This disclosure is being madepursuant to the Care Everywhere program and may not contain all information available regarding this patient. Last updated 18.[facility] Social History Tobacco Use Types Packs/Day Years Used Date Smoking Tobacco: Never Assessed Sex and Gender Information Value Date Recorded Sex Assigned at Not on file Gender Identity Not on file Sexual Orientation Not on file Procedures * MRI BREAST BILAT WWO CONTRAST(Performed 11/27/2014) * CREATININE BLOOD - POCT (IP) [facility](Performed 11/27/2014) Results * MRI BREAST BILAT WWO CONTRAST (11/27/2014 3:06 PM MIRROR FABRICATION SUPERVISOR) Anatomical Region Laterality Modality Breast Bilateral Other Impressions 11/27/2014 3:54 PM MIRROR FABRICATION SUPERVISOR IMPRESSION: BI-RADS category 4B, intermediate suspicious findings. 0.7 cm oval enhancing mass in the upper outer left breast, near 2:00, likely corresponds to the small mass seen on mammography and outside breast ultrasound. This is indeterminate and demonstrates washout kinetics. Ultrasound-guided biopsy could be used for definitive diagnosis. Irregular enhancing mass measuring up to 1.2 cm with an adjacent biopsy clip thought to correspond to the known malignancy. This could represent an invasive or in situ malignancy based on imaging. No suspicious enlarged lymph nodes. No suspicious findings within the right breast. This report was electronically signed by ALLIE SALAZAR M.D. on 11/27/2014 3:54 PM . Narrative 11/27/2014 3:54 PM MIRROR FABRICATION SUPERVISOR MRI of the breasts with and without contrast COMPARISON: No relevant examinations. HISTORY: CARCINOMA TECHNIQUE: Multiplanar multisequence MR imaging of both breasts before and following the administration of intravenous gadolinium contrast. Dynamic phase imaging was performed in the axial plane. Exam processed by and interpreted on a gestigon summons server including 3-D volume rendering, subtraction image processing and contrast kinetic analysis. FINDINGS: Degree of postcontrast parenchymal enhancement: Moderate. Amount of fibroglandular tissue: Scattered fibroglandular tissue. RIGHT: Nonspecific enhancing foci are noted throughout the right breast. No suspicious enhancing mass or non-mass enhancement is seen. Small cyst with benign rim enhancement is noted in the subareolar right breast. Right axillary lymph nodes are not enlarged. LEFT: In the slightly upper, and slightly outer left breast, 7 cm deep to the nipple is an irregular enhancing mass that appears bilobed measuring approximately 1.2 x 0.6 cm in size. A biopsy marker is noted posterior to this mass and this is consistent with the biopsy-proven carcinoma. In addition, located more superiorly within the upper outer left breast, 8-9 cm deep to the nipple is an oval enhancing mass measuring 0.7 mm in size. This contains heterogeneous internal enhancement with washout and represents the dominant enhancing focus within both breasts. This mass is visible mammographically and is thought to correspond to the hypoechoic mass seen on the ultrasound performed 09/19/2013. Ultrasound guided biopsy can be considered for further diagnosis. Additional nonspecific enhancing foci are scattered throughout the left breast, similar in distribution to the right. Scattered nonenhancing cysts are noted within the left breast. Left axillary lymph nodes are not enlarged. No internal mammary lymph nodes are seen. Procedure Note Elida Salazar MD - 02/27/2018 MRI of the breasts with and without contrast COMPARISON: No relevant examinations. HISTORY: CARCINOMA TECHNIQUE: Multiplanar multisequence MR imaging of both breasts before and followingthe administration of intravenous gadolinium contrast. Dynamic phaseimaging was performed in the axial plane. Exam processed by andinterpreted on a gestigon summons server including 3-D volume rendering, subtraction image processing and contrast kineticanalysis. FINDINGS: Degree of postcontrast parenchymal enhancement: Moderate. Amount of fibroglandular tissue: Scattered fibroglandular tissue. RIGHT: Nonspecific enhancing foci are noted throughout the right breast. Nosuspicious enhancing mass or non-mass enhancement is seen. Small cyst withbenign rim enhancement is noted in the subareolar right breast. Rightaxillary lymph nodes are not enlarged. LEFT: In the slightly upper, and slightly outer left breast, 7 cm deep to thenipple is an irregular enhancing mass that appears bilobed measuringapproximately 1.2 x 0.6 cm in size. A biopsy marker is noted posterior tothis mass and this is consistent with the biopsy-proven carcinoma. In addition, located more superiorly withinthe upper outer left breast, 8-9 cm deep to the nipple is an ovalenhancing mass measuring 0.7 mm in size. This contains heterogeneousinternal enhancement with washout and represents the dominant enhancing focus within both breasts. This mass isvisible mammographically and is thought to correspond to the hypoechoicmass seen on the ultrasound performed 09/19/2013. Ultrasound guided biopsycan be considered for further diagnosis. Additional nonspecific enhancing foci are scattered throughoutthe left breast, similar in distribution to the right. Scatterednonenhancing cysts are noted within the left breast. Left axillary lymph nodes are not enlarged. No internal mammary lymphnodes are seen. IMPRESSION IMPRESSION: BI-RADS category 4B, intermediate suspicious findings. 0.7 cm oval enhancing mass in the upper outer left breast, near 2:00,likely corresponds to the small mass seen on mammography and outsidebreast ultrasound. This is indeterminate and demonstrates washoutkinetics. Ultrasound-guided biopsy could be used for definitive diagnosis. Irregular enhancing mass measuring up to 1.2 cm with an adjacent biopsyclip thought to correspond to the known malignancy. This could representan invasive or in situ malignancy based on imaging. No suspicious enlarged lymph nodes. No suspicious findings within the right breast. This report was electronically signed by ALLIE SALAZAR M.D. on11/27/2014 3:54 PM . Historical Provider MR ORDERABLES * CREATININE BLOOD - POCT (IP) [facility] (11/27/2014) Creatinine POCT 0.75 0.3 - 1.3 mg/dL [facility] eGFR POCT 60 60 ml/min [facility] 11/27/2014 Historical Provider LAB - POINT OF CA RE ORDERABLES [facility] Care Teams Stucco Laborer Relationship Specialty Start Date End Date Shaji Romero MD PCP - General 11/07/14
--- OUTSIDE RECORDS SUMMARY | 2025-01-23 11:02 | XMS_ITS | Clinical Summary ---
Author Organization [facility] Address [address] [place] [address] Care Team Providers Care Metal Weather Stripper Name Role Phone Shaji Romero MD Primary Care Provider [phone] Source Comments [facility],non-owned Affiliates and Associated Physician Practices is amultiple site organization consisting of ambulatory clinics and hospital sitesin [place], [place], [place] and [place]. This disclosure is being madepursuant to the Care Everywhere program and may not contain all information available regarding this patient. Last updated 18.[facility] Social History Tobacco Use Types Packs/Day Years Used Date Smoking Tobacco: Never Assessed Sex and Gender Information Value Date Recorded Sex Assigned at Not on file Gender Identity Not on file Sexual Orientation Not on file Plan of Treatment Health Maintenance Due Date Last Done Comments COLOGUARD (AGES 45-75) - COL ON CA SCREENING 1962 COLON MONITORING 1962 COLONOSCOPY - COLON CA SCREENING 1962 CT COLONOGRAPHY - COLON CA SCREENING 1962 Colorectal Cancer Screening 1962 FIT - COLON CA SCREENING 1962 FLEX SIG - COLON CA SCREENING 1962 LIPID TESTING 1962 MAMMOGRAM 1962 PAP SMEAR 1962 HIV SCREENING 1977 HEPATITIS C SCREENING 08/29/1980 DTAP/TDAP/TD VACCINES (1 - Tdap) 1981 PNEUMOCOCCAL VACCINE 50+ (1 of 1 - PCV) 2012 ZOSTER VACCINE (1 of 2) 2012 COVID-19 VACCINE ( - 2023-2 5 season) 2024 INFLUENZA VACCINE (#1) 2024 DEPRESSION SCREENING 11/30/2024 Respiratory Syncytial Virus (RSV) Vaccine Pt: or over 60 yrs (1 - 1-dose 75+ series) 2037 HEPATITIS B VACCINE Aged Out No longe r eligible based on patient's age to complete this topic HIB VACCINE Aged Out No longer eligi ble based on patient's age to complete this topic HPV VACCINE Aged Out No longer eligi ble based on patient's age to complete this topic MENINGOCOCCAL (Group B) VACCINE Aged Out No longer eligible based on patient's age to complete this topic MENINGOCOCCAL VACCINE Aged Out No allen ayesha eligible based on patient's age to complete this topic PNEUMOCOCCAL VACCINE Aged Out No long er eligible based on patient's age to complete this topic Care Teams Metal Weather Stripper Relationship Specialty Start Date End Date Shaji Romero MD PCP - General 11/07/14
--- OUTSIDE RECORDS SUMMARY | 2025-01-23 11:02 | XMS_ITS | Clinical Summary ---
Author Organization [facility] [address] Address [address] [place] [address] Care Team Providers Care Cargo Router Name Role Phone Shaji Romero MD Primary Care Provider Allergies No known active allergies Medications lisinopril (PRINIVIL,ZESTR IL) 10 mg tablet take 1 tablet by oral route every day 0 0 11/21/2014 Active ALPRAZolam (XANAX) 0.25 mg tablet take 1 tablet by oral route every day 0 0 11/21/2014 Active omeprazole (PriLOSEC) 20 mg capsule take 1 capsule by oral route every day before a meal 0 0 11/21/2014 Active metoprolol (LOPRESSOR) 25 mg tablet TAKE 1 TABLET BY ORAL ROUTE 2 TIMES EVERY DAY 60 3 11/21/2014 Active ELIQUIS 5 mg tablet TK 1 T PO BID 6 11/21/2018 Active FLUOXETINE 10 mg capsule TK 1 C PO QD IN THE MORNING 0 11/17/2018 Active acidophilus-pec tin, citrus 100 million cell-10 mg capsule Take by mouth. Active Active Problems Problem Noted Date Diagnosed Date Syncope and collapse 06/08/2019 Vasovagal syncope 06/08/2019 Lipid screening 11/17/2017 Tobacco abuse 11/17/2017 Paroxysmal atrial fibrillation (CMS/HCC) 014 Overview (03/07/2017): Paroxysmal atrial fibrillation Benign hypertension 11/21/2014 Overview (03/07/2017): HTN (hypertension), benign Malignant neoplasm of breast 11/21/2014 Overview (03/07/2017): Breast cancer Alcohol abuse 11/21/2014 Overview (03/07/2017): ETOH abuse ALEXANDRA on CPAP 11/21/2014 Overview (03/07/2017): ALEXANDRA (obstructive sleep apnea) Medical History Medical History Date Comments Hypertension Sleep apnea Atrial fibrillation (CMS/HCC) (HCC) Family History Medical History Relation Name Comments Throat cancer Father Cancer, throat ; COPD Mother COPD; Colon cancer Mother Cancer, colon; Other Other Family history of Cardiac arrhythmias; Relation Name Status Comments Father Mother Other Social History Tobacco Use Types Packs/Day Years Used Date Smoking Tobacco: Smoker, Current Status Unknown Smokeless Tobacco: Never Alcohol Use Standard Drinks/Week Comments Yes 0 (1 standard drink = 0.6 oz pur e alcohol) Personal Safety Answer Date Recorded Getting School Help Needed Not on file 02/13 Comments Unknown Sex and Gender Information Value Date Recorded Sex Assigned at Not on file Legal Sex Female 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 [employer] Gender Identity Not on file Sexual Orientation Not on file Obstetrics History Last Filed Vital Signs Vital Sign Reading Time Taken Comments Blood Pressure 134/76 06/08/2019 1:21 PM CDT Pulse 74 06/08/2019 1:21 PM CDT Temperature - - Respiratory Rate - - Oxygen Saturation 97% 06/08/2019 1:21 PM CDT Inhaled Oxygen Concentration - - Weight 73.9 kg (163 lb) 06/08/2019 1:21 PM CDT Height 162.6 cm (5' 4 ) 06/08/2019 1:21 PM CDT Body Mass Index 27.98 06/08/2019 1:21 PM CDT Plan of Treatment Not on file Insurance [employer] Care Teams Cargo Router Relationship Specialty Start Date End Date Shaji Romero MD [address] [place] [address] [place] [address] PCP - General 02/27/17
--- OUTSIDE RECORDS SUMMARY | 2025-01-23 11:02 | XMS_ITS | Referral Summary ---
Author Organization [facility] Address [address] [place] [address] Care Team Providers Care Roughener Name Role Phone Shaji Romero MD Primary Care Provider [phone] Source Comments [facility],non-owned Affiliates and Associated Physician Practices is amultiple site organization consisting of ambulatory clinics and hospital sitesin [place], [place], [place] and [place]. This disclosure is being madepursuant to the Care Everywhere program and may not contain all information available regarding this patient. Last updated 18.[facility] [employer] Social History Tobacco Use Types Packs/Day Years Used Date Smoking Tobacco: Never Assessed Sex and Gender Information Value Date Recorded Sex Assigned at Not on file Gender Identity Not on file Sexual Orientation Not on file Plan of Treatment Not on file Care Teams Roughener Relationship Specialty Start Date End Date Shaji Romero MD PCP - General 11/07/14
--- OUTSIDE RECORDS SUMMARY | 2025-01-23 11:02 | XMS_ITS | Referral Summary ---
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
== END 2025-01-23 10:45 | disposition home or self-care (01) ==
PROVIDERS: Emergency Provider Nurse Practitioner; PCP Family Medicine
DX: J40 Bronchitis, not specified as acute or chronic (principal); F17.210 Nicotine dependence, cigarettes, uncomplicated; E78.5 Hyperlipidemia, unspecified; E78.00 Pure hypercholesterolemia, unspecified; I10 Essential (primary) hypertension; I48.0 Paroxysmal atrial fibrillation; K21.9 Gastro-esophageal reflux disease without esophagitis; Z85.3 Personal history of malignant neoplasm of breast
CPT/HCPCS: 71046; 99213; G0463

== ENCOUNTER 2025-09-12 12:11 | Outpatient (CLI) | payer SELFPAY ==
--- NOTE | ~2025-09-12 | US_ITS ---
EXAMINATION: US venous doppler [facility] DATE: 09/12/2025 12:59 INDICATION: Left lower limb pain and swelling. TECHNIQUE: Grayscale ultrasound images without and with compression and Doppler ultrasound images of the left lower extremity veins were obtained. COMPARISON: None. FINDINGS: The visualized portions of left common femoral vein, profunda (deep) femoral vein, femoral vein, popliteal vein, peroneal veins, posterior tibial veins, and greater saphenous vein outflow are patent. IMPRESSION: 1. No deep venous thrombosis. Reviewed, dictated and finalized at location E.
== END 2025-09-12 12:12 | disposition home or self-care (01) ==
PROVIDERS: PCP Family Medicine; Visit Provider Family Medicine
DX: M79.89 Other specified soft tissue disorders (principal)
CPT/HCPCS: 93971